=== PATIENT | female | born 1985 | race Asian ===

== ENCOUNTER 2024-04-20 10:19 | Outpatient (CLI) | payer OTHER ==
--- NOTE | 2024-04-20 12:14 | Ultrasound Report ---
PROCEDURE: Abdomen Limited INDICATIONS: GALLBLADDER POLYPS TECHNIQUE: Real-time focused scanning was performed of the abdomen, with image documentation. COMPARISONS: None. FINDINGS: Liver: Liver is normal in size. There is mild diffuse fatty infiltration of the liver. Gallbladder: There is a 5 x 4 mm gallbladder wall polyp present. There is no evidence for cholelithia sis. No diffuse gallbladder wall thickening is present. No sonographic [place] sign is present. Biliary ducts: Intrahepatic bile ducts are non-dilated. Extrahepatic bile duct caliber measures 4.6 mm. Normal is 6-7 mm or less in diameter, or 10 mm or less post-cholecystectomy. Pancreas: Visualized portions of the pancreas are sonographically normal. Right kidney: Normal in size and echotexture. Right kidney measures 10 cm long. No hydronephrosis or nephrolithiasis. No solid masses. No complex renal cystic lesions which require follow-up. IVC: Intrahepatic inferior vena cava is patent. Miscellaneous: No free abdominal fluid. IMPRESSION: 1. 5 x 4 mm gallbladder wall polyp. 2. Mild diffuse fatty infiltration of the liver. Reviewed by: Jude Quevedo MD on 04/20/2024 12:13 PM PDT Approved by: Jude Quevedo MD on 04/20/2024 12:13 PM PDT Station ID: [id number]
== END 2024-04-20 10:20 | disposition home or self-care (01) ==
LOC: DI 10:19
PROVIDERS: ATTEND Nurse Practitioner Family
DX: K82.4 Cholesterolosis of gallbladder (principal); K76.0 Fatty (change of) liver, not elsewhere classified